=== PATIENT | male | born 1965 | race Caucasian/White ===

== ENCOUNTER 2021-12-25 08:55 | Outpatient (CLI) | payer OTHER, SELFPAY ==
--- NOTE | 2021-12-25 09:15 | MR_ITS ---
[address] [address] Phone:?[phone] Fax:?[phone] Referring Physician Information: Franki Martinez M.D. [address] [facility] [address] Phone:?[phone] Fax:?[phone] Patient:Nancy Veloz D.O.B:?1965 Sex:?Male Phone:?[phone] [facility] MRN:?[id number] Exam Date:?12/25/2021 ? EXAM: MRI of the LEFT SHOULDER, without contrast CLINICAL: Evaluate for rotator cuff tear. COMPARISONS: None available. TECHNICAL: MRI sequences of the left shoulder: Axials: PD, PDFS Coronals: PD, T2FS Sagittals: PDFS, T2 SEDATION: None. CONTRAST: None. FINDINGS: Rotator cuff: Supraspinatus/Infraspinatus: There is mild tendinosis with mild thin linear partial interstitial insertional tearing of the distal supraspinatus and infraspinatus tendons. No significant fatty atrophy of the muscle bellies. Teres minor: There is mild fatty infiltration/atrophy of the teres minor muscle. No significant tendinosis or tendon tear. Subscapularis: No tendinosis, tear or atrophy. Bursae: Subacromial-subdeltoid: Mild bursitis. Subcoracoid: No convincing subcoracoid bursal thickening/bursitis. Coracoacromial arch: Acromion morphology: Type II. No os acromiale. Acromiohumeral space: Within normal limits. Coracohumeral space: Within normal limits. Biceps tendon, long head: Intraarticular and extraarticular segments intact without rupture, tendinopathy or displacement. Glenohumeral joint: Physiologic volume of joint fluid. Articular cartilage: Grade 2-3 chondral thinning is seen to involve the medial humeral head and glenoid. Capsule: No convincing evidence of capsular thickening or injury. Labrum: Mild degenerative changes are seen throughout the entire labrum. There is mild focal tearing of the superior labrum on coronal series 4 image 14. No perilabral cyst identified. Bones: No suspicious marrow signal alteration, fracture or dislocation. Acromioclavicular joint: Advanced changes of arthrosis with inferior hypertrophic change mildly encroaching upon the underlying supraspinatus. There is prominent reactive marrow edema about the AC joint. No AC joint widening. IMPRESSION: 1. Mild tendinosis with mild thin linear partial interstitial insertional tearing of the distal supraspinatus and infraspinatus tendons. No full-thickness or retracted rotator cuff tendon tear. 2. Mild subacromial/subdeltoid bursitis. 3. Advanced AC joint arthrosis. 4. Grade 2-3 chondral thinning involving the glenohumeral joint. 5. Mild degenerative changes throughout the glenoid labrum with mild focal tearing of the superior labrum. JCZ Electronically signed on 12/25/2021 1:29:00 PM by Sam Holly D.O.
== END 2021-12-25 08:56 | disposition home or self-care (01) ==
LOC: MRI 08:57
PROVIDERS: PCP Family Medicine; Visit Provider Orthopaedic Surgery Sports Medicine
DX: M25.512 Pain in left shoulder (principal); S46.912A Strain of unspecified muscle, fascia and tendon at shoulder and upper arm level, left arm, initial encounter; M75.52 Bursitis of left shoulder; S43.432A Superior glenoid labrum lesion of left shoulder, initial encounter
CPT/HCPCS: 73221

== ENCOUNTER 2022-03-16 09:32 | Outpatient (CLI) | payer OTHER, SELFPAY ==
[2022-03-16 13:47] LABS: Chloride* 107 mmol/L (96-114); Potassium* 4.7 mmol/L (3.6-5.1); Sodium* 142 mmol/L (135-149)
[2022-03-16 13:49] LABS: Creatinine* 0.7 mg/dL (0.5-1.5); Estimated Glomerular Filt Rate 107 ml/min
[2022-03-16 13:50] LABS: Blood Urea Nitrogen* 18 mg/dL (7-30); Calcium* 9.2 mg/dL (8.4-10.6); Carbon Dioxide* 26 mmol/L (20-32); Glucose* 98 mg/dL (60-115)
== END 2022-03-16 09:33 | disposition home or self-care (01) ==
LOC: LONREF 09:34
PROVIDERS: PCP Family Medicine; Visit Provider Family Medicine
DX: Z01.818 Encounter for other preprocedural examination (principal)
CPT/HCPCS: 80048

== ENCOUNTER 2022-03-25 06:44 | Day surgery (SDC) | payer OTHER, SELFPAY ==
[2022-03-25] VITALS (36 sets, daily range): BP systolic 121–153; BP diastolic 75–104; PULSE 41–88; RESP 16; TEMP 36.1–36.6; O2SAT 91–99; BMI 26.6
[2022-03-25] MEDS: MIDAZOLAM HCL 1 MG/ML inj IVP (06:49)
[2022-03-25] MEDS: SODIUM CHLORIDE 0.9 % (FLUSH) 10 ML SYRINGE IVF (07:15)
[2022-03-25] MEDS: LACTATED RINGERS 1000 ML 1,000 ML 100 ML IV (07:15)
--- NOTE | 2022-03-25 07:21 | SUR.PREOP ---
TIME?OUT:?0723 PT/RN/MDA?VERIFICATION?OF?SURGICAL?SITE,?PROCEDURE,?AND?CONSENT OBTAINED?PRIOR?TO?INVASIVE?PROCEDURE.
[2022-03-25] MEDS: fentaNYL 100 MCG/2 ML inj IVP (07:24)
--- NOTE | 2022-03-25 07:36 | P.NB_ITS ---
Nerve Block Nerve Block Time Seen by Provider: 07:29 Date Seen: 03/25/22 Type of block requested by surgeon for post-operative analgesia: supraclavicular Side: left Time out performed: Yes Verification of patient name: Yes Verification of date of : Yes Site marking: site marked Name of person performing procedure: Ton Continuous monitoring Was continuous monitoring of O2 sat, B/P, support service tech, recorded every 15 minutes?: Yes Procedure Checklist: sterile prep, needles and gloves Ultrasound guided. Images saved: Yes Medications given in 5ml increments after negative aspiration: Ropivicaine %: 0.5 mL: 20 Needle gauge: 22 Decadron (mg): 10 Precedex (mcg): 25 Patient tolerated procedure well: Yes Block Charges Block Charge (with Pro Fee): Brachial Plexus Use of Ultrasound Machine for Block: Yes- US Guidance/pain block
[2022-03-25] MEDS: CEFAZOLIN 2 GM in 0.9 % SODIUM CHLORIDE Mini-bag 100 ML IVPB (07:53)
[2022-03-25] MEDS: EPINEPHrine 1 MG in SODIUM CHLORIDE IRRIG SOLUTION 3,000 ML 9003 MG IRRIGATION ×3 (08:08→08:38)
--- NOTE | 2022-03-25 08:51 | P.ORPRC_ITS ---
Procedure Note Date of procedure: 03/25/22 Procedure: PREOPERATIVE DIAGNOSES: 1. Left shoulder subacromial impingement syndrome. 2. Left shoulder AC joint osteoarthritis, primary, severe POSTOPERATIVE DIAGNOSES: 1. Left shoulder subacromial impingement syndrome. 2. Left shoulder anterior and superior labral tearing, degenerative 3. Left shoulder AC joint osteoarthritis, primary, severe NAME OF OPERATION: 1. Left shoulder arthroscopic distal clavicle excision. 2. Left shoulder arthroscopic limited glenohumeral debridement 3. Left shoulder arthroscopic subacromial decompression/partial acromioplasty SURGEON: Franki Martinez MD DRIVER MERCHANDISER: Trip Lopez PA-C. Of note, an life enrichment assistant was critical for this case to aide in patient positioning, suture manipulation, arm positioning, instrument positioning, and closure. ANESTHESIA: General plus preoperative supraclavicular block. EBL: Less than 25 mL IMPLANTS: None COMPLICATIONS: None evident INDICATIONS: The patient is a pleasant, 57-year-old male who has experienced left shoulder pain that has been increasing in recent time. Physical exam and imaging were consistent with a subacromial impingement syndrome and AC arthrosis. MRI was obtained indeed confirmed substantial AC joint capsular hypertrophy and edema of the distal clavicle. Given their findings, as well as the pain, and inadequate response to nonoperative management, recommendation was made for surgery. FINDINGS: Exam under anesthesia revealed stable shoulder with excellent range of motion. The diagnostic arthroscopy revealed healthy chondral surfaces of the glenohumeral joint. The Subscapularis tendon was intact with healthy attachment. The long head of the biceps tendon was intact. The rotator cuff tendon was found to be intact with a normal sail sign and no evidence of partial-thickness or full-thickness tearing. The labrum was torn in a degenerative tearing. No loose bodies were identified within the pouch or subscapularis recess. PROCEDURE: Following a thorough discussion of risks, benefits, and alternatives, consent was obtained and the operative shoulder was marked. The patient was brought to the operating room and placed supine on the operating table. Induction of anesthesia was completed after preoperative supraclavicular block was administered in preop holding. Appropriate time out was performed identifying proper patient, site, and procedure. 2 g IV Ancef was administered within 1 hour of incision preoperatively. The left upper extremity was prepped and draped in the appropriate sterile fashion using ChloraPrep prep. This was after the patient was positioned in the beach chair with their head in neutral alignment and all bony prominences well padded. The shoulder was insufflated with 20mL of normal saline via an 18g spinal needle from a posterior approach. An 11 blade skin incision allowed a blunt trochar to be inserted and diagnostic arthroscopy to be performed with the findings as noted above. An anterior portal was established with an outside in technique. This allowed the probe to be inserted and confirm the diagnostic arthroscopic findings. A limited glenohumeral debridement was performed including debridement of the anterior and superior labral degenerative torn tissue. We then went into the subacromial space. This revealed abundant bursitis and again a hypertrophied AC joint capsule. The shaver and [place] cautery device were then inserted and allowed debridement of the subacromial bursa/subdeltoid bursa. Following this, the subacromial decompression/partial acromioplasty was performed with a 5.5 mm bur. This bur was then utilized for distal clavicle excision removing approximately 8 mm of distal clavicle. The camera was visualized within the AC joint space and found that the bone was completely removed from the more caudal to the more cephalad position confirming release/excision while sparing the superior and posterior capsule. Thereafter, the shaver was reinserted into the subacromial space and all remaining bony debris was excised. Instruments removed, excess fluid was drained, closure performed with 4 Monocryl and Steri- Strips. Dressings were applied. Sling was applied. The patient was awoken from anesthesia and transferred to the PACU in stable condition. PLAN: 1. Elbow, forearm, wrist and digit range of motion as tolerated. 2. Encouraged ice. 3. Percocet for pain as needed. 4. Sling at all times except for ROM and showering. 5. Follow up with PA visit in 1-2 weeks for wound check.
--- NOTE | 2022-03-25 09:07 | W.ANESCHARGE ---
Anesthesia Charges Start Date/Time Anesthesia Start Date: 03/25/22 Anesthesia Start Time: 07:39 Stop Date/Time Anesthesia Stop Date: 03/25/22 Anesthesia Stop Time: 09:07 Summary Emergency: No
--- NOTE | 2022-03-25 09:08 | W.ANESCHARGE ---
Anesthesia Charges Start Date/Time Anesthesia Start Date: 03/25/22 Anesthesia Start Time: 07:39 Stop Date/Time Anesthesia Stop Date: 03/25/22 Anesthesia Stop Time: 09:07 Summary Emergency: No
[2022-03-25] MEDS: fentaNYL 100 MCG/2 ML inj 50 MCG IVP ×2 (09:20→09:27)
[2022-03-25] MEDS: IBUPROFEN 400 MG TABLET PO (10:06)
[2022-03-25] MEDS: OxyCODONE/APAP 5-325 TABLET 1 TAB PO (10:06)
== END 2022-03-25 11:21 | disposition home or self-care (01) ==
PROVIDERS: PCP Family Medicine; Visit Provider Orthopaedic Surgery Sports Medicine
PROC: (CPT 29805; principal; 2022-03-25 07:30)
DX: M75.42 Impingement syndrome of left shoulder (principal); M19.012 Primary osteoarthritis, left shoulder; S43.432A Superior glenoid labrum lesion of left shoulder, initial encounter; M25.512 Pain in left shoulder; M75.52 Bursitis of left shoulder
CPT/HCPCS: 29826; 29824; 29822; 01630; 64415; 76942; A9270; J0171; J0330; J0690; J1100; J2250; J2405; J2704; J2795; J3010; J7120

== ENCOUNTER 2022-12-21 09:06 | Outpatient (CLI) | payer OTHER, SELFPAY ==
--- NOTE | 2022-12-21 09:15 | MR_ITS ---
[facility] [address] [facility] [address] Phone:?[phone] Fax:?[phone] Referring Physician Information: Franki Martinez M.D. [address] [facility] [address] Phone:?[phone] Fax:?[phone] Patient:Nancy Veloz D.O.B:?1965 Sex:?Male Phone:?[phone] [facility] MRN:?[id number] Exam Date:?12/21/2022 EXAM: MRI OF THE LEFT KNEE CLINICAL INFORMATION: The patient is a 57-year-old with left knee pain. Evaluate for medial meniscal tear. Evaluate for osteoarthritis. PRIOR SURGERY: None reported. COMPARISON STUDIES: There are no prior studies available for comparison. TECHNICAL INFORMATION: Imaging was performed on a high-field, 1.5 Annika MR scanner. Axial proton-density and fat-suppressed T2 imaging of the left knee was performed in addition to coronal proton-density and coronal STIR imaging. Sagittal proton-density and sagittal fat-suppressed proton-density imaging was also performed. FINDINGS: Articular/Extraarticular collections: Effusion: Mild to moderate. Popliteal cyst: Small to moderate, seen on sagittal series 6 images 9 through 12. Loose bodies: No well-defined intra-articular loose bodies are present. Subcutaneous and extraarticular soft tissues: Nonspecific subcutaneous soft tissue edema and/or hemorrhage can be seen along the anterior and anteromedial aspects of the left knee. Osseous structures: There is cortical irregularity and subcortical edema along the articular surfaces of the medial femoral condyle and medial tibial plateau, in keeping with the meniscal tearing and chondral thinning described below. Additional reactive bony changes are seen involving the intercondylar notch and tibial spines of the ACL origin and insertion sites. The findings are in keeping with the ACL abnormalities discussed below. Mild cystic or chondroid changes within the central aspect of the distal femur can be seen on sagittal series 6 image 17, measuring approximately 9 mm in greatest dimension. Reactive bony changes along the articular surfaces of the lateral patellar facet can be seen with cortical irregularity, subcortical cystic change, and subcortical edema, noted to best advantage on axial series 4 image 14. The findings are in keeping with patellar chondromalacia and chondral loss described below. Ligamentous structures: ACL: The anterior cruciate ligament is abnormal in appearance. There is thickening of the ACL with indistinctness of its margins and increased intrasubstance signal intensity. The findings are in keeping with a severe sprain of the ACL, however no transverse disruption of ACL fibers can be seen. Increased signal intensity within the intercondylar notch is noted. PCL: Intact and normal in appearance. MCL: A mild incomplete MCL sprain is present and can be seen on coronal series 8 image 19. No transverse disruption of MCL fibers can be seen. LCL: Intact and normal in appearance. Posterolateral corner: Intact and normal in appearance. Posteromedial corner: No posteromedial corner soft tissue injury. Semimembranosus and pes anserine tendons demonstrate no tendinopathy or associated bursitis. Extensor mechanism/Patellar retinacular structures: Patellar tendon: Intact, without tendinopathy. Quadriceps tendon: Chronic appearing thickening of the distal quadriceps tendon can be seen with mild partial-thickness tearing and splitting. The findings are in keeping with distal quadriceps tendinosis. Retinacula: The medial and lateral retinacula are intact. The medial patellofemoral ligament is intact. Medial compartment: Medial meniscus: The medial meniscus is abnormal in appearance. There is broad- based, complex, predominantly apical free edge and inferior surface tearing of the middle and posterior portions seen on coronal series 7 image 19 and on sagittal series 6 image 10. The area of tearing measures approximately 28 mm in mediolateral dimension and 25 mm in anteroposterior dimension. No definite evidence for parameniscal cyst formation is identified. The anterior horn appears intact. Medial femoral condyle: Broad-based changes of grade II chondromalacia can be seen along the weightbearing surfaces of the medial femoral condyle. Medial tibial plateau: Broad-based changes of grade II chondromalacia can be seen along the weightbearing surfaces of the medial tibial plateau. Lateral compartment: Lateral meniscus: There is tearing and degeneration of the anterior horn of the lateral meniscus seen on sagittal series 6 images 22 and 23. The area of broad- based tearing and degeneration measures 22 mm in mediolateral dimension. The middle one third of the lateral meniscus appears intact. Poorly defined tearing of the far posterior aspect of the lateral meniscus at the meniscotibial attachment can be seen on sagittal series 6 image 21 and on coronal series 7 image 22, measuring approximately 10 mm in greatest dimension. No parameniscal cyst formation is identified. Lateral femoral condyle: No chondromalacia, chondral defect, or osteochondral abnormality. Lateral tibial plateau: No chondromalacia, chondral defect, or osteochondral abnormality. Patellofemoral compartment: Patella: Broad-based changes of grade II to III chondromalacia can be seen involving the patellar apex and lateral patellar facet with underlying bony changes along the lateral facet. The area of chondromalacia and chondral loss measures 25 mm in mediolateral dimension and 12 mm in craniocaudal dimension. No well-defined full-thickness patellar chondral defects are noted. Trochlea: No chondromalacia, chondral defect, or osteochondral abnormality. Neurovascular: No definite neurovascular abnormalities are seen. CONCLUSION: 1. Broad-based tearing of the medial and lateral menisci as described above. 2. Incomplete sprain injuries of the ACL and MCL as described above. 3. Chondromalacia and chondral loss involving the medial joint compartment and patella with underlying bony changes along the lateral patellar facet. 4. Chronic distal quadriceps tendinosis. 5. Mild to moderate knee joint effusion and [id number] popliteal cyst. AEC Electronically signed on 12/23/2022 6:52:00 AM by Clement Aguirre M.D.
== END 2022-12-21 09:07 | disposition home or self-care (01) ==
LOC: MRI 09:07
PROVIDERS: PCP Family Medicine; Visit Provider Orthopaedic Surgery Sports Medicine
DX: M25.562 Pain in left knee (principal); S83.242A Other tear of medial meniscus, current injury, left knee, initial encounter; S83.412A Sprain of medial collateral ligament of left knee, initial encounter; S83.512A Sprain of anterior cruciate ligament of left knee, initial encounter; M22.42 Chondromalacia patellae, left knee; M25.462 Effusion, left knee
CPT/HCPCS: 73721

== ENCOUNTER 2023-01-08 08:47 | Outpatient (CLI) | payer OTHER, SELFPAY | END 2023-01-08 08:48 | disposition home or self-care (01) | PROVIDERS: PCP Family Medicine; Visit Provider Family Medicine | DX: Z01.818 Encounter for other preprocedural examination (principal); I10 Essential (primary) hypertension; Z13.6 Encounter for screening for cardiovascular disorders; Z12.5 Encounter for screening for malignant neoplasm of prostate | CPT/HCPCS: 80048; 80061; 84153 ==

== ENCOUNTER 2023-01-18 07:01 | Day surgery (SDC) | payer OTHER, SELFPAY ==
[2023-01-18] VITALS (14 sets, daily range): BP systolic 95–146; BP diastolic 58–88; PULSE 40–65; RESP 14–22; TEMP 36.1–36.4; O2SAT 95–98; BMI 26.2
[2023-01-18] MEDS: LACTATED RINGERS 1000 ML 1,000 ML 100 ML IV (07:46)
[2023-01-18] MEDS: SODIUM CHLORIDE 0.9 % (FLUSH) 10 ML SYRINGE IVF (07:47)
[2023-01-18] MEDS: CEFAZOLIN 2 GM in 0.9 % SODIUM CHLORIDE Mini-bag 100 ML IVPB (08:08)
--- NOTE | 2023-01-18 08:40 | P.ORPRC_ITS ---
Procedure Note Date of procedure: 01/18/23 Procedure: PREOPERATIVE DIAGNOSIS: 1. Left knee medial and lateral meniscus tear POSTOPERATIVE DIAGNOSIS: 1. Left knee medial and lateral meniscus tear 2. Left knee degenerative ACL tearing, partial-thickness 3. 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 Left knee arthroscopic partial medial and meniscectomy 2. Left knee arthroscopic ACL debridement of torn fibers SURGEON: Franki Martinez M.D. ACUTE CARE SURGEON: David ESCOBAR. Of note, an special events assistant was critical for this case to aid in patient positioning, knee manipulation, instrument exchange, and closure. ANESTHESIA: Spinal EBL: 2ml TOURNIQUET: 25 minutes at 300 torr COMPLICATIONS: None evident INDICATIONS: The patient is a pleasant 57-year-old male who has experienced left knee pain particularly with any twisting or turning. Physical exam was concerning for medial meniscus tear, this was confirmed on MRI. Additionally, attempted nonoperative management has been tried, and failed. Thus, surgery was recommended. FINDINGS: Complex tearing medial meniscus extending from posterior horn to midbody. Posterior root was intact. Grade 2-3 chondromalacia weight-bearing portion medial femoral condyle broadly. Lateral meniscus showed tearing of the anterior horn approaching the midbody. Complex in pattern. This tearing extended into the anterior fibers of the ACL with some loose striations that were clearly abnormal and partially torn. PCL was otherwise intact and robust. Lateral articular cartilage was healthy. Patellofemoral compartment cartilage grade 1-2 chondromalacia. No loose bodies evident. DESCRIPTION OF PROCEDURE: After a thorough discussion of risks, benefits, and alternatives, the patient was brought to the operating room and placed upon the operating table. Induction of anesthesia was undertaken as previously noted. 2g iv Ancef was administered within 1 hr of incision preoperatively. Appropriate time-out was performed identifying proper patient, site, and procedure. The left lower extremity was prepped and draped in the appropriate sterile fashion using ChloraPrep. The limb was exsanguinated and tourniquet inflated. Anterolateral and anteromedial portals were established with an 11 blade, and a diagnostic arthroscopy was performed. This identified the findings as noted above. Following the diagnostic arthroscopy, a partial medial and lateral menisectomy was performed with the combination of basket forceps and a motorized shaver. Following this, the meniscus was re-probed and found to be stable. Approximately 40-50 % of the overall meniscus required resection. Regarding the lateral meniscus, approximately 10% of the meniscus required resection. In addition, torpedo shaver was utilized for debridement of the anterior partially torn ACL fibers that were loose and clearly not structurally of relevance. At this stage, the shaver was reinserted into the suprapatellar pouch and all remaining meniscal debris was evacuated. Instruments were removed, excess fluid was drained, and closure performed with 4-0 Monocryl with Steri-Strips. Dressings were applied, the tourniquet deflated, and the patient was awoken from anesthesia and transferred to the PACU in stable condition. PLAN: 1. Weightbear as tolerated operative extremity. Crutch / walker ambulation assistance PRN. Straight leg raise to be initiated starting tomorrow by the patient. 2. Ice, acetominophen and/or ibuprofen, and oxycodone for pain as needed. 3. Knee range of motion and quad sets/straight leg raise regularly 4. Follow up with PA visit in 7-10 days. for a wound check. Initiate physical therapy at that time
[2023-01-18] MEDS: ROPIVACAINE 0.5% 30 ML 150 MG INJECTION (08:42)
--- NOTE | 2023-01-18 08:56 | W.ANESCHARGE ---
Anesthesia Charges Start Date/Time Anesthesia Start Date: 01/18/23 Anesthesia Start Time: 08:00 Stop Date/Time Anesthesia Stop Date: 01/18/23 Anesthesia Stop Time: 08:52
== END 2023-01-18 12:15 | disposition home or self-care (01) ==
PROVIDERS: PCP Family Medicine; Visit Provider Orthopaedic Surgery Sports Medicine
PROC: (CPT 29870; principal; 2023-01-18 08:30)
DX: S83.232A Complex tear of medial meniscus, current injury, left knee, initial encounter (principal); S83.272A Complex tear of lateral meniscus, current injury, left knee, initial encounter; S83.512A Sprain of anterior cruciate ligament of left knee, initial encounter; M94.262 Chondromalacia, left knee
CPT/HCPCS: 29880; 29888; 01400; J0690; J1100; J2250; J2405; J2704; J2795; J3010; J7120

== ENCOUNTER 2023-04-16 13:46 | Outpatient (CLI) | payer OTHER, SELFPAY ==
--- NOTE | 2023-04-16 14:00 | CRLHL7_ITS ---
For Patients: As a result of the Century Cures Act, medical imaging exams and procedure reports are released immediately into your electronic medical record. You may view this report before your referring provider. If you have questions, please contact your health care provider. Indication: Right testicular palpable lump. Technique: Ultrasound of the scrotum and contents. Sonographic zhang-scale images were obtained with spectral and color Doppler waveform and spectral waveform analysis of the testicles. Comparison: None. Findings: Bother testicles are normal in size and echotexture. No masses. No suspicious calcifications. Arterial and venous color Doppler blood flow and spectral waveforms are present in both testicles. Epididymis: Mildly complex right epididymal cyst measures 7 mm. Otherwise unremarkable. Other: No significant hydrocele. No sign of varicocele. Scrotal wall is normal. Impression: A 7 mm cystic lesion in the right epididymis is responsible for the palpable lump. Remainder of the exam is normal. Dictated by Eleazar Garcia MD @ 04/16/2023 3:26:17 PM (Electronically Signed)
== END 2023-04-16 13:47 | disposition home or self-care (01) ==
LOC: US 13:47
PROVIDERS: PCP Family Medicine; Visit Provider Family Medicine
DX: N50.811 Right testicular pain (principal); N50.3 Cyst of epididymis
CPT/HCPCS: 76870; 93976

== ENCOUNTER 2025-01-03 08:27 | Outpatient (CLI) | payer BC, SELFPAY | END 2025-01-03 08:28 | disposition home or self-care (01) | PROVIDERS: PCP Family Medicine; Visit Provider Family Medicine | DX: Z13.0 Encounter for screening for diseases of the blood and blood-forming organs and certain disorders involving the immune mechanism (principal); Z12.5 Encounter for screening for malignant neoplasm of prostate; Z13.1 Encounter for screening for diabetes mellitus | CPT/HCPCS: 80048; G0103 ==

== ENCOUNTER 2025-01-22 07:40 | Outpatient (CLI) | payer BC, SELFPAY ==
--- NOTE | 2025-01-22 08:32 | P.ANES_ITS ---
Anesthesia Charges Start Date/Time Anesthesia Start Date: 01/22/25 Anesthesia Start Time: 08:10 Stop Date/Time Anesthesia Stop Date: 01/22/25 Anesthesia Stop Time: 08:29 Coding CPT Codes CPT Codes: LEANDER LWR INTST NDSC NOS - 01900 ([id number]) P2 - PATIENT W/MILD SYST DISEASE, QK - RADIATION CONTROL WORKER 2-4 CNCRNT ANES PROC, QX - PERSONALIZED LIVING ASSISTANT SVC W/ MD MED DIRECTION
--- NOTE | 2025-01-22 08:32 | W.ANESCHARGE ---
Anesthesia Charges Start Date/Time Anesthesia Start Date: 01/22/25 Anesthesia Start Time: 08:10 Stop Date/Time Anesthesia Stop Date: 01/22/25 Anesthesia Stop Time: 08:29 Coding CPT Codes CPT Codes: LEANDER LWR INTST NDSC NOS - 40150 ([id number]) P2 - PATIENT W/MILD SYST DISEASE, QK - RAILWAY TRACTION LINE WORKER 2-4 CNCRNT ANES PROC, QX - RADIO REPAIRER SVC W/ MD MED DIRECTION
--- NOTE | 2025-01-22 08:56 | P.ANES_ITS ---
Anesthesia Charges Start Date/Time Anesthesia Start Date: 01/22/25 Anesthesia Start Time: 08:10 Stop Date/Time Anesthesia Stop Date: 01/22/25 Anesthesia Stop Time: 08:29 Coding CPT Codes CPT Codes: LEANDER LWR INTST NDSC NOS - [id number] ([id number]) P2 - PATIENT W/MILD SYST DISEASE, QK - WEED THINNER 2-4 CNCRNT ANES PROC, QX - TURFGRASS TECHNICIAN SVC W/ MD MED DIRECTION
--- NOTE | 2025-01-22 08:56 | W.ANESCHARGE ---
Anesthesia Charges Start Date/Time Anesthesia Start Date: 01/22/25 Anesthesia Start Time: 08:10 Stop Date/Time Anesthesia Stop Date: 01/22/25 Anesthesia Stop Time: 08:29 Coding CPT Codes CPT Codes: LEANDER LWR INTST NDSC NOS - 26916 ([id number]) P2 - PATIENT W/MILD SYST DISEASE, QK - EXECUTIVE SECRETARY SOCIAL WELFARE 2-4 CNCRNT ANES PROC, QX - MEDICAL BILLING ASSOCIATE SVC W/ MD MED DIRECTION
== END 2025-01-22 07:41 | disposition home or self-care (01) ==
LOC: OP CLINIC 07:42
PROVIDERS: PCP Family Medicine; Visit Provider Internal Medicine
DX: Z12.11 Encounter for screening for malignant neoplasm of colon (principal); Z86.0100 Personal history of colon polyps, unspecified; D12.5 Benign neoplasm of sigmoid colon
CPT/HCPCS: 00811; 00812; 45380; 88305; J2704